=== PATIENT | female | born 1950 | race Caucasian/White ===

== ENCOUNTER 2022-09-11 09:07 | Outpatient (CLI) | payer MEDICARE, BC, SELFPAY ==
[2022-09-11 15:00] LABS: SARS PCR* Negative SARS-CoV-2 (Negative)
== END 2022-09-11 09:08 | disposition home or self-care (01) ==
LOC: FBOREF 09:08
PROVIDERS: Visit Provider Orthopaedic Surgery Sports Medicine
DX: Z20.822 Contact with and (suspected) exposure to COVID-19 (principal)
CPT/HCPCS: 87635

== ENCOUNTER 2022-09-13 09:35 | Outpatient (CLI) | payer MEDICARE, BC, SELFPAY | END 2022-09-13 09:36 | disposition home or self-care (01) | LOC: LAB 09:37 | PROVIDERS: PCP Internal Medicine; Visit Provider Orthopaedic Surgery Sports Medicine | DX: Z01.818 Encounter for other preprocedural examination (principal) | CPT/HCPCS: 36415; 86850; 86900; 86901 ==

== ENCOUNTER 2022-09-15 06:04 | Day surgery (SDC) | payer MEDICARE, BC, SELFPAY ==
[2022-09-15] VITALS (25 sets, daily range): BP systolic 97–151; BP diastolic 44–78; PULSE 53–78; RESP 16–20; TEMP 36.2–36.8; O2SAT 86–99; BMI 28.1
[2022-09-15] MEDS: OXYCODONE (CR) 10 MG TAB.ER.12H PO (06:45)
[2022-09-15] MEDS: ACETAMINOPHEN 500 MG TABLET 1000 MG PO ×3 (06:45→21:43)
[2022-09-15] MEDS: CELECOXIB 200 MG CAPSULE PO ×2 (06:45→20:45)
[2022-09-15] MEDS: LACTATED RINGERS 1000 ML 1,000 ML 100 ML IV ×3 (06:55→08:40)
[2022-09-15] MEDS: SODIUM CHLORIDE 0.9 % (FLUSH) 10 ML SYRINGE IVF (06:55)
[2022-09-15] MEDS: fentaNYL 100 MCG/2 ML inj IVP (07:23)
[2022-09-15] MEDS: MIDAZOLAM HCL 1 MG/ML inj IVP (07:23)
--- NOTE | 2022-09-15 07:32 | SUR.PREOP ---
TIME?OUT:?0722 PT/RN/MDA?VERIFICATION?OF?SURGICAL?SITE,?PROCEDURE,?AND?CONSENT OBTAINED?PRIOR?TO?INVASIVE?PROCEDURE.
[2022-09-15] MEDS: CEFAZOLIN 2 GM in 0.9 % SODIUM CHLORIDE Mini-bag 100 ML IVPB ×3 (07:40→21:43)
[2022-09-15] MEDS: TRANEXAMIC ACID 100 MG/ML INJ 1000 MG IV (07:48)
--- NOTE | 2022-09-15 07:49 | CRLHL7_ITS ---
For Patients: As a result of the Cures Act, medical imaging exams and procedure reports are released immediately into your electronic medical record. You may view this report before your referring provider. If you have questions, please contact your health care provider. Indication: Hip replacement surgery Technique: AP hip fluoroscopic image. Fluoroscopy time 34.0 seconds. Findings/Impression: Hardware from a left total hip arthroplasty is in satisfactory position. Dictated by Navid Mott MD @ 09/15/2022 9:08:10 AM (Electronically Signed)
--- NOTE | 2022-09-15 08:59 | P.NB_ITS ---
Nerve Block Nerve Block Time Seen by Provider: 07:15 Date Seen: 09/15/22 Type of block requested by surgeon for post-operative analgesia: LACEY/LFCN Side: left Time out performed: Yes Verification of patient name: Yes Verification of date of : Yes Site marking: site marked Name of person performing procedure: Grupo Tate Continuous monitoring Was continuous monitoring of O2 sat, B/P, cardiac cath lab manager, recorded every 15 minutes?: Yes Procedure Checklist: sterile prep, needles and gloves Ultrasound guided. Images saved: Yes Medications given in 5ml increments after negative aspiration: Ropivicaine %: 0.5 mL: 20 Needle gauge: 20 Decadron (mg): 10 Precedex (mcg): 25 Patient tolerated procedure well: Yes Additional comments: Injected in 5ml increments after negative aspiration. Block Charges Block Charge (with Pro Fee): Other Periph Nerve Block Use of Ultrasound Machine for Block: Yes- US Guidance/pain block
--- NOTE | 2022-09-15 09:04 | P.ORPRC_ITS ---
Procedure Note Date of procedure: 09/15/22 Procedure: PREOPERATIVE DIAGNOSIS: 1. Left hip osteoarthritis, severe, primary POSTOPERATIVE DIAGNOSIS: 1. Left hip osteoarthritis, severe, primary PROCEDURE: 1. Left total hip arthroplasty-anterior approach 2. 08597 - intraoperative fluoroscopy up to 1 hour. SURGEON: Kvng Anders MD. MACHINE RIVETER: Ferny Mcarthur PA-C; TIFFANY Toure - Of note, a skilled aquatics assistant department head was critical for this case to aid in patient positioning, tissue retraction, limb manipulation/positioning, dislocation/relocation, patient safety, and closure. ANESTHESIA: Spinal anesthetic EBL: 300ml IMPLANTS: DePuy J&J uncemented total hip [place] cup size 52, hole eliminator, +0 neutral liner Actis stem, High offset, size 7 +5 mm ceramic 32mm head. COMPLICATIONS: None evident INDICATIONS: The patient is a pleasant 71yo female who has experienced severe left hip pain and difficulty bearing weight. Workup included x-rays which revealed severe osteoarthrosis in the hip. Given the deformity, the dysfunction, and the pain, as well as the failure of nonoperative management, recommendation was made for surgery. FINDINGS: moderate effusion upon entering the joint. full-thickness chondral loss femoral head. significantly sclerotic acetabulum. Osteophytes anterosuperior acetabulum. DESCRIPTION OF PROCEDURE: Following a thorough discussion of risks, benefits, and alternatives consent was obtained and the left hip was marked. The patient was brought to the operating room and placed supine on the operating table. Induction of anesthesia was undertaken. 2 g IV Ancef and 1 g tranexamic acid was administered within 1 hr of incision preoperatively. Proper time-out was performed identifying proper patient, site, procedure. The operative extremity was prepped and draped in the appropriate sterile fashion using ChloraPrep after the patient was positioned on the [place] table with head in neutral alignment and all bony prominences well padded. C-arm fluoroscopic imaging was utilized to confirm proper pelvis rotation and position, and to get true AP films of both the contralateral left, and the affected left hip. This is for comparison. A longitudinal incision was made starting approximately 1 cm distal to the ASIS, and 3-4 cm lateral. The incision was extended distally aiming toward the lateral border the patella. Sharp incision through skin and bovie cautery through the subcutaneous tissue allowed identification of the TFL fascia. This was sharply divided, and the fascia bluntly released from the muscle fibers as we dissected medial. Upon coming to the medial border, we were able to retract the TFL laterally, and penetrated the deeper fascia and identify the crossing circumflex vessels. These were ligated/cauterized. The rectus was elevated from the capsule, and retractors placed laterally and m edially along the femoral neck to help with visualization of the capsule. We then performed an inverted T capsulotomy. The capsule was tagged for later repair. Retractors were placed inside the capsule. The femoral neck was visualized after releasing medially down to the lesser trochanter, along the saddle laterally, and up onto the acetabulum. The femoral neck cut was made in line with our preoperative templating. The head was removed in a single piece, and sized. We turned our attention to acetabular preparation. Initially, the labrum was resected from around the perimeter, the pulvinar was excised, allowing us to visualize the false wall. We started the reaming with a 43 mm reamer. This was medialized down to the true wall. We then enlarged our reamers sequentially up to one size less than the selected cup size. We trialed at the same size and found it to have an excellent fit. The selected cup was then opened, inserted, and impacted in line with the goal of 40-45? of abduction, and 20-25? of anteversion. This was confirmed on C-arm fluoroscopic imaging to be in the appropriate/goal position. Once the cup was placed we placed a hole eliminator and a liner consistent with preop planning. Attention was turned to the femoral preparation. The limb was extended, externally rotated, and adducted. The posteromedial capsule was released, as retractors were placed allowing excellent access to the proximal femur. Initially a spreader box operator was followed by canal finder followed by various broaches. We broached sequentially up to size noted above, found it to have excellent rotational control, and trialing various heads and necks, revealed that appropriate neck offset, and the above noted head size provided the greatest stability, and mosque of length, and offset. C-arm fluoroscopic imaging confirmed position of the stem, as well as leg lengths, which were compared with the pre procedure all fluoroscopic images. Trial implants were removed, the real femoral stem inserted, as was the ceramic head. After reducing, the leg was placed through range of motion and stability was confirmed anterior, posterior, and lateral. A 3 min Betadine soak was then performed, and thorough irrigation with normal saline followed. Closure of the capsule was performed with #1 PDS. Bleeding was confirmed to be controlled at this stage, and the TFL fascia was closed with #0 strata fix. Subcutaneous, and subcuticular closure was performed with 2-0 Vicryl and 4-0 Monocryl, respectively. Dressings were applied, and the patient was awoken from anesthesia and transferred the PACU in stable condition. A skilled aquatics assistant department head was critical for this case to aid in patient positioning, tissue retraction, proximal femur exposure, limb manipulation/positioning, dislocation/relocation, patient safety, and closure. PLAN: 1. Weight bear as tolerated operative extremity. 2. 23 hr perioperative antibiotics. 3. Ice. 4. PT/OT consults for ambulation assistance/mobility education. 5. Social work consult for discharge planning. 6. DVT prophylaxis with at [facility], Branden Little, and Florrelaaron for a total of 1 month (factor V leiden mutation)
--- NOTE | 2022-09-15 09:50 | W.ANESCHARGE ---
Anesthesia Charges Start Date/Time Anesthesia Start Date: 09/15/22 Anesthesia Start Time: 07:33 Stop Date/Time Anesthesia Stop Date: 09/15/22 Anesthesia Stop Time: 09:49 Summary Emergency: No Extremes of Age: Over 72-CPT [id number]
--- NOTE | 2022-09-15 09:54 | CRLHL7_ITS ---
For Patients: As a result of the Cures Act, medical imaging exams and procedure reports are released immediately into your electronic medical record. You may view this report before your referring provider. If you have questions, please contact your health care provider. Indication: POST OP LEFT DINH Technique: AP hip centered pelvis and lateral view left hip. Findings/Impression: Hardware from a left total hip arthroplasty is in satisfactory position. Bone alignment is normal. No sign of acute fracture. Postop changes are within normal limits. Dictated by Navid Mott MD @ 09/15/2022 10:32:37 AM (Electronically Signed)
[2022-09-15] MEDS: LACTATED RINGERS 1000 ML 1,000 ML 75 ML IV (10:43)
--- NOTE | 2022-09-15 10:52 | W.ANESCHARGE ---
Anesthesia Charges Start Date/Time Anesthesia Start Date: 09/15/22 Anesthesia Start Time: 07:33 Stop Date/Time Anesthesia Stop Date: 09/15/22 Anesthesia Stop Time: 09:49 Summary Emergency: No
[2022-09-15] MEDS: OXYCODONE 5 MG TABLET PO ×5 (11:49→23:19)
--- NOTE | 2022-09-15 13:08 | P.IMCN_ITS ---
Date of Consult Consult date: 09/15/22 Requesting Physician: Orthopedics Primary Care Provider: Layne Berumen MD Consult Narrative Reason for consult: Medical management of comorbidities Narrative: Minerva Tijerina is a 71 year old female who presented to the hospital this morning for an elective LTH. There were no operative nor anesthetic complications. Hospitalist team was consulted given patient's comorbidities. Minerva's preoperative H&P was reviewed, her PCP is Dr. Layne Berumen at [facility] in [place]. Her previous surgeries include a R total hip replacement in December 2021, bronchoscopy (performed remotely for hemoptysis), lap cholecystectomy, anterior cervical fusion, and tubal ligation. Past medical history includes osteoarthritis, mild anxiety that is well controlled, bilateral sensorineural hearing loss, and heterozygous factor 5 Leiden mutation. Her mutation was discovered after her sister had a workup, post CVA. Minerva herself has never had a blood clot. She did require a blood transfusion in 1973 after the of her daughter. Her PCP recommends 30 days of rivaroxaban postoperatively for prophylaxis, given mutation. Minerva is a nonsmoker, she lives with her in [place] and has worked in their school district. She is COVID vaccinated. Review of Systems Status of ROS: Reports: 10 or more systems reviewed and unremarkable except as noted in History and below [facility] Medical History (Updated 09/11/22 @ 13:19 by Marifer Brown RN) Anxiety Depression Elevated cholesterol Factor V Leiden carrier GERD (gastroesophageal reflux disease) Muscle cramps Osteoporosis Renal calculi Sensorineural hearing loss, bilateral Surgical History (Updated 09/15/22 @ 13:17 by Latoya Torres MD) Hip joint replacement status History of arthroscopy of left shoulder History of cervical spinal surgery History of cholecystectomy History of right hip replacement (01/21/22) Hx of neck surgery Family History (Updated 08/26/22 @ 09:21 by Lulu Brenner RN) Mother Chandler's palsy Diabetes Cancer of colon with rectum Hyperlipidemia Stroke Father Alcohol dependence Heart attack Lung cancer Sister Factor V Leiden Brother Non-Hodgkin lymphoma Social History Highest level of school completed/degree received: some college, no degree Smoking Status: Never smoker Do you use any of these nicotine containing products: None How often do you have a drink containing alcohol: monthly or less Alcohol type: wine How many standard drinks containing alcohol do you have on a typical day: 1 or 2 How often do you have six or more drinks on one occasion: Never AUDIT-C Alcohol total score: 1 Non-prescribed substance use: denies use Caffeine: Yes (occ Diet Coke; coffee, 2 cups/AM) service: No Meds Home Medications and Allergies Home Medications Medication Instructions Recorded Confirmed Type gabapentin 100 mg capsule 200 mg PO HS 07/04/22 09/12/22 History mirtazapine 15 mg tablet 45 mg PO HS 07/04/22 09/15/22 History atorvastatin 20 mg tablet 20 mg PO HS 09/12/22 09/15/22 History Allergies Allergy/AdvReac Type Severity Reaction Status Date / Time morphine Allergy Unknown Verified 09/15/22 06:41 Exam Narrative: Exam Narrative: GEN: Alert HEENT: Normal external ears, EOMIs bilaterally, no scleral icterus CV: RRR, soft systolic murmur without concerning features noted, patient states this is chronic R: LCTA bilaterally without concerning wheezing. Breathing comfortably without tachypnea Ext: wwp, no concerning edema Skin: No concerning skin lesions or rashes on exposed skin Neuro: Nonfocal Psych: Appropriate Const: Vital Signs, click to edit/add: Vital Signs - 24 hr 09/15/22 06:39 09/15/22 07:25 09/15/22 07:33 Temperature 97.8 F Pulse Rate 69 69 66 Pulse Rate [Right Pulse Oximeter] Respiratory Rate 16 16 16 Blood Pressure 148/74 H 151/66 H 121/72 Blood Pressure [Le ft Arm] Pulse Oximetry 96 97 97 Oxygen Delivery Me thod Room Air Nasal Cannula Nasal Cannula Oxygen Flow Rate 2 2 09/15/22 09:45 09/15/22 09:50 09/15/22 09:55 Temperature 97.3 F L Pulse Rate 56 L 57 L 56 L Pulse Rate [Right Pulse Oximeter] Respiratory Rate 16 16 16 Blood Pressure 110/56 L 109/62 107/60 Blood Pressure [Le ft Arm] Pulse Oximetry 97 96 97 Oxygen Delivery Me thod Room Air Room Air Room Air Oxygen Flow Rate 09/15/22 10:00 09/15/22 10:05 09/15/22 10:10 Temperature 97.2 F L Pulse Rate 56 L 59 L 56 L Pulse Rate [Right Pulse Oximeter] Respiratory Rate 16 16 16 Blood Pressure 103/63 114/60 103/62 Blood Pressure [Le ft Arm] Pulse Oximetry 97 95 97 Oxygen Delivery Me thod Room Air Room Air Room Air Oxygen Flow Rate 09/15/22 10:15 09/15/22 10:24 09/15/22 10:24 Temperature Pulse Rate 55 L 55 L Pulse Rate [Right Pulse Oximeter] 55 L Respiratory Rate 16 16 16 Blood Pressure 108/59 L Blood Pressure [Le ft Arm] 99/78 97/78 Pulse Oximetry 97 97 Oxygen Delivery Me thod Room Air Room Air Room Air Oxygen Flow Rate Assessment and Plan Assessment and plan (1) Hip joint replacement status: Status: Acute Assessment and Plan: - pain control and prophylaxis per Orthopedic Surgery team (agree with PCP and plan for 30 days of 10mg Rivaroxaban once/day) - comorbidities as above are stable, continue home medications - anticipate routine postoperative course, hospitalist team will follow along during patient's care (2) Factor V Leiden carrier: Status: Acute (3) Osteoarthritis of left hip: Status: Acute Plan per above
[2022-09-15] MEDS: HYDROmorphone 0.5 mg/0.5 ml inj IVP (13:38)
--- NOTE | 2022-09-15 15:05 | PC.NURSE ---
Pt. arrived to room 259 from PACU @ 1024. Denied pain or other issues. Spouse present. Dressing to left anterior hip C/D/I. Tolerating ice chips & H20. Tired from anesthesia, but interactive in cares. Vitals stable this shift, but requiring 1L O2 off and on due to sats dropping into low-mid 80s; w/1L, sats 92-98%. Informed RT, obtained O2 order. Oxy 5mg given for 1/10 pain, dilaudid for 5/10 with relief. Up w/Ax1 to SBA w/walker/belt. Currently resting in chair. Report to TORI Fletcher.
--- NOTE | 2022-09-15 18:17 | PC.NURSE ---
Shift Summary: Patient pleasant and cooperative. Up to the bathroom with one assist ,walker and gait belt. Pain controlled with PRN medication and continuous ice. Vitals stable and WNL. Lung souns clear. Dressing over hip dry and intact. Denies nausea or SOB.
[2022-09-15] MEDS: SENNOSIDES 1 TAB TABLET 2 TAB PO (20:46)
[2022-09-15] MEDS: LORazepam 0.5 MG TABLET PO (23:19)
[2022-09-16] VITALS: O2SAT 94
[2022-09-16] MEDS: LORazepam 0.5 MG TABLET PO (00:30)
[2022-09-16] MEDS: OXYCODONE 5 MG TABLET PO ×2 (03:16→10:41)
[2022-09-16] MEDS: ACETAMINOPHEN 500 MG TABLET 1000 MG PO ×2 (03:17→10:41)
[2022-09-16 03:18] VITALS: BP 127/57; PULSE 64; RESP 20; TEMP 36.7; O2SAT 94
--- NOTE | 2022-09-16 05:34 | PC.NURSE ---
Shift Note -: Pt pleasant and cooperative, appears anxious and forgetful. VSS, afebrile, pain controlled with 5mg oxycodone. Up to BR with SBA, walker and gait belt. Pt able to mobilize herself in and out of bed well. PIV is asymptomatic and SL. Pt states that she did not sleep well. See eMAR for medication administration.
[2022-09-16] MEDS: CEFAZOLIN 2 GM in 0.9 % SODIUM CHLORIDE Mini-bag 100 ML IVPB (06:17)
[2022-09-16 07:00] VITALS: BP 124/66; PULSE 70; RESP 20; TEMP 36.7; O2SAT 96
[2022-09-16 07:00] LABS: Basophils Percent Auto 0.1 % (0.0-3.0); Hemoglobin* 10.2 gm/dL (12.0-16.0); Immature Granulocytes Abs Auto 0.04 K/uL (0.00-0.30); Mean Corpuscular HGB Conc 32 gm/dL (32-36); Mean Corpuscular Hemoglobin 29 pg (26-34); Mean Corpuscular Volume 90 fL (80-100); Monocytes Percent Auto 5.7 % (0.0-11.0); Platelet Count* 228 K/uL (140-440); RDW Coefficient of Variation % 12.9 % (11.5-15.5); Red Blood Count 3.55 m/uL (4.00-5.20); White Blood Count* 16.69 K/uL (4.50-11.00)
[2022-09-16 07:02] LABS: Slide Review Reflex No
[2022-09-16 07:19] LABS: Potassium* 4.8 mmol/L (3.6-5.1); Sodium* 136 mmol/L (135-149)
[2022-09-16 07:21] LABS: Creatinine* 0.8 mg/dL (0.5-1.5); Est. Creatinine Clearance* 45.85; Estimated Glomerular Filt Rate 80 ml/min
[2022-09-16 07:22] LABS: Blood Urea Nitrogen* 17 mg/dL (7-30)
[2022-09-16] MEDS: CELECOXIB 200 MG CAPSULE PO (08:58)
[2022-09-16] MEDS: RIVAROXABAN 10 MG TABLET PO (08:58)
[2022-09-16] MEDS: SENNOSIDES 1 TAB TABLET 2 TAB PO (08:58)
--- NOTE | 2022-09-16 12:07 | PC.SOCIAL ---
Met with pt in pt's room. Pt reports that she has a rambler and has access to everything on one floor. Pt has assistance from her and adult children. Pt reports that she prepped and froze several meals for her recovery process. Informed pt if she needs any further assistance for resources she may reach out to the social work department at the [facility].
--- NOTE | 2022-09-16 16:46 | PM.ORPN ---
Subjective Subjective Date Seen: 09/16/22 Principal diagnosis: Status postop day 1 left total hip arthroplasty - anterior approach Interval history: Patient reports doing well. No acute events over night. Did not sleep well last night. Pain managed with scheduled /PRN medications and ice. DVT prophylaxis Xarelto due to factor 5 Leiden deficiency, bilateral knee high Branden stockings, and SCDs. Denies fevers, chills, aches, N/V, CP, SOB/CHÁVEZ, tachycardia, or lightheadedness. Ortho Exam Narrative Exam Narrative: -Patient appears comfortable in recliner; no apparent acute distress. Eating breakfast -Alert and oriented times 3 -Operative hip mildly swollen; soft tissues supple; no obvious erythema. Ecchymosis minimal. Warmth appropriate -Surgical dressing clean, dry, intact; no obvious drainage, no erythematous streaking peripheral to the bandage -Bilateral calves soft and supple; no significant swelling, edema, tenderness, erythema, discoloration, warmth, or palpable cords -2+ DP/PT pulses, intact dermatomes and myotomes distally (5/5 strength). Mild numbness about the lateral femoral cutaneous nerve distribution. Const Vital Signs, click to edit/add: Vital Signs - 24 hr 09/15/22 16:59 09/15/22 19:00 09/15/22 22:41 Temperature 98.3 F 98.3 F Pulse Rate [Left Dorsalis Pedis] 73 Pulse Rate [Right Pulse Oximeter] 73 Respiratory Rate 16 Blood Pressure [Left Arm] 122/60 Pulse Oximetry 91 94 Oxygen Delivery Method Nasal Cannula Room Air Oxygen Flow Rate 1 09/15/22 23:00 09/15/22 23:00 09/16/22 00:00 Temperature 98.3 F Pulse Rate [Left Dorsalis Pedis] 78 78 Pulse Rate [Right Pulse Oximeter] 78 78 Respiratory Rate 16 20 Blood Pressure [Left Arm] 120/65 Pulse Oximetry 94 94 Oxygen Delivery Method Room Air Room Air Oxygen Flow Rate 09/16/22 03:18 09/16/22 07:00 09/16/22 07:00 Temperature 98.1 F 98.1 F Pulse Rate [Left Dorsalis Pedis] 64 70 Pulse Rate [Right Pulse Oximeter] 70 Respiratory Rate 20 20 20 Blood Pressure [Left Arm] 127/57 L 124/66 Pulse Oximetry 94 96 96 Oxygen Delivery Method Room Air Room Air Room Air Oxygen Flow Rate 09/16/22 07:00 Temperature Pulse Rate [Left Dorsalis Pedis] 70 Pulse Rate [Right Pulse Oximeter] 70 Respiratory Rate 20 Blood Pressure [Left Arm] Pulse Oximetry Oxygen Delivery Method Oxygen Flow Rate Assessment and Plan Assessment and plan (1) Hip joint replacement status: Problem details: POD 1 left total hip arthroplasty - anterior approach Status: Acute (2) Factor V Leiden carrier: Problem details: On Xarelto postop 30 days Status: Acute (3) Osteoarthritis of left hip: Status: Acute Plan - Complete 23 hour perioperative antibiotics. - PT/OT consult for education and assistance. - Social work consult for discharge planning - Prescribed analgesics as needed - DVT prophylaxis: Xarelto for 30 days, bilateral knee high Branden Hose stockings and SCDs - Anticipation is for discharge to home with family 09/16/2022 if the patient remains medically stable, pain is controlled, and they are safe with mobilization.
== END 2022-09-16 13:18 | disposition home or self-care (01) ==
LOC: OR 06:17 → MEDSURG 06:18
PROVIDERS: PCP Internal Medicine; Visit Provider Orthopaedic Surgery Sports Medicine
PROC: (CPT 27130; principal; 2022-09-15 07:30)
DX: M16.12 Unilateral primary osteoarthritis, left hip (principal); D68.51 Activated protein C resistance; F41.9 Anxiety disorder, unspecified; F32.A Depression, unspecified; K21.9 Gastro-esophageal reflux disease without esophagitis; M81.0 Age-related osteoporosis without current pathological fracture
CPT/HCPCS: 27130; 01214; 36415; 64450; 73501; 73502; 76000; 76942; 82565; 84132; 84295; 84520; 85025; 97110; 97116; 97161; 97165; 97535; 99100; A9270; C1776; J0690; J1100; J1170; J2250; J2405; J2704; J2795; J3010; J7120